=== PATIENT | female | born 1940 | race Caucasian/White ===

== ENCOUNTER 2022-08-31 16:40 | Inpatient (IN) | payer MEDICARE, BC ==
[~2022-08-31] VITALS: Ht 167.6 cm; Wt 76.2 kg
--- NOTE | 2022-08-31 18:09 | NUR ---
Pt taken to CT.
[2022-08-31 18:10] LABS: HEMATOCRIT 41.5 % (31.2-41.9); MEAN CORPUSCULAR HEMOGLOBIN 28.2 uug (24.7-32.8); MEAN CORPUSCULAR VOLUME 83.6 fL (75.5-95.3); PLATELET COUNT (AUTO) 194 K/uL (179-408)
[2022-08-31 18:19] LABS: CARBON DIOXIDE 31 mmol/L (21-32); CHLORIDE 104 mmol/L (98-107); CREATININE 0.9 mg/dL (0.6-1.3); GLUCOSE 104 mg/dL (74-106); POTASSIUM 3.9 mmol/L (3.5-5.1); UREA NITROGEN, BLOOD 11 mg/dL (7-18)
[2022-08-31 18:32] LABS: ALANINE AMINOTRANSFERASE 20 U/L (14-59); ALKALINE PHOSPHATASE 95 U/L (50-136); ASPARTATE AMINOTRANSFERASE 21 U/L (15-37); BILIRUBIN,DIRECT 0.2 mg/dL (0.0-0.2); BILIRUBIN,TOTAL 0.7 mg/dL (0.2-1.0); TOTAL PROTEIN, SERUM 7.4 g/dL (6.4-8.2)
--- NOTE | 2022-08-31 18:34 | NUR ---
Pt a poor historian, unable to obtain list of medications.
--- NOTE | 2022-08-31 18:51 | NUR ---
Dr. Carballo on panel call with Leticia Browning NP.
[2022-08-31] MEDS ORDERED: ONDANSETRON 4 MG/2 ML VIAL IV PRN (20:00)
[2022-08-31] MEDS ORDERED: ACETAMINOPHEN 325 MG TABLET PO PRN (20:00)
[2022-08-31] MEDS ORDERED: MAGNESIUM HYDROXIDE 30 ML LIQUID UDC PO PRN (20:00)
[2022-08-31] MEDS ORDERED: REMEDY ESSENTIAL ZINC PASTE 113 GM TP PRN (20:00)
[2022-08-31] MEDS: IV NS 1000 ML 1,000 ML IV PRN ×2 (20:31→22:17)
[2022-08-31 22:20] VITALS: BP 168/92
[2022-08-31 22:21] VITALS: BP 171/84
[2022-08-31 22:22] VITALS: BP 166/73
--- NOTE | 2022-08-31 22:30 | NUR ---
Admitted to room 315; placed on tele; unable to obtain home meds; room mate has no access; pt's pharmacy on record = not 24 hour; will endorse tonext shift to call in AM -- [facility]
[2022-09-01] VITALS: BP 150/65
[2022-09-01 04:00] VITALS: BP 140/71
[2022-09-01] MEDS ORDERED: PANTOPRAZOLE SODIUM 40 MG TABLET.DR PO SCH (07:00)
[2022-09-01 07:42] LABS: HEMATOCRIT 35.3 % (31.2-41.9); MEAN CORPUSCULAR HEMOGLOBIN 28.3 uug (24.7-32.8); MEAN CORPUSCULAR VOLUME 83.6 fL (75.5-95.3); PLATELET COUNT (AUTO) 149 K/uL (179-408)
[2022-09-01 07:56] LABS: CREATININE 0.7 mg/dL (0.6-1.3); MAGNESIUM 2.1 mg/dL (1.8-2.4); POTASSIUM 4.1 mmol/L (3.5-5.1)
[2022-09-01 08:09] LABS: THYROID STIMULATING HORMONE 2.415 mIU/mL (0.358-3.740)
--- NOTE | 2022-09-01 09:08 | NUR ---
AWAKE ALERT AND ORIENTED PHYSICAL THERAPY HERE AND PATIENT AMBULATED WITH THE FRONT WHEEL WALKER IN THE HALLWAY WITH GOOD ENDURANCE IVF IN PROGRESS ORDERED ORTHO B/P WAS PERFORMED AND DOCUMENTED IN THE LONG FORM.
[2022-09-01 09:10] VITALS: BP 138/72
[2022-09-01 09:13] VITALS: BP_SYST 156; BP_SYST 157; BP_DIAS 64; BP_DIAS 65
--- NOTE | 2022-09-01 09:30 | NUR ---
PATIENT SEEN AND EXAMINED BY DR ROSARIO WITH NO NEW ORDERS AT THIS TIME ORTHOSTATIC BLOOD PRESSURE DONE ORDERED AND DOCUMENTED ON THE LONG FORM
[2022-09-01 11:48] VITALS: BP 134/68
[2022-09-01] MEDS ORDERED: ROSU5TAB PO (13:34)
[2022-09-01] MEDS ORDERED: ATEN50TA PO (13:34)
[2022-09-01] MEDS ORDERED: LOSA100T31 PO (13:34)
[2022-09-01] MEDS ORDERED: AMLO-212 PO (13:34)
--- NOTE | 2022-09-01 15:00 | NUR ---
PATIENT SEEN AND EXAMINED BY ORESTES MELENDEZ WITH NO NEW ORDERS AT THIS TIME.
--- NOTE | 2022-09-01 16:00 | NUR ---
PATIENT IS SOMEWHAT MIXED UP LOOKING FOR THE DAUGHTER TELLING STORIES THAT ARE UNABLE TO FOLLOW DENIES DISCOMFORTS STATED WANTS TO TLAK TO HER DAUGHTER GAVE HER THE PHONE AND SHE IS DIALING HER.
[2022-09-01 16:46] VITALS: BP 163/69
--- NOTE | 2022-09-01 18:01 | NUR ---
BLOOD PRESSURE IS 163/63 ORESTES AMBULETTE DRIVER AWARE AND SHE STATED THAT SHE WILL RECONCILE PATIENTS BLOOD PRESSURE MEDS DID NOT WANT TO GIVE HER PRN MEDS UNLESS SYSTOLIC IS ABOVE 170
--- NOTE | 2022-09-01 18:10 | NUR ---
PATIENT IN HER ROOM EATING DINNER WITH HER DAUGHTER AT THE BEDSIDE JOGGLE PRESS OPERATOR HERE AND 2D ECHO COMPLETED ORDERED WITH 60 PERCENT EF.
--- NOTE | 2022-09-01 18:18 | NUR ---
PER ORESTES PATIENT CAN BE DISCHARGED NEEDS TO FOLLOW UP WITH DR ROSARIO IN ON WEEK CALLED AND NOTIFIED PATIENTS DAUGHTER ANTHONY WILL BE HERE TO EMERGENCY MANAGEMENT SPECIALIST HER MOM AND DID SAY THAT HER MOM HAS HER OWN TRAFFIC WORKER AND WILL PREFER TO GO BACK TO HER OWN TRAFFIC WORKER. Addendum: 09/01/22 at 1900 by SHELLEY ANDINO RN ERROR WRONG PATIENT
--- NOTE | 2022-09-01 18:20 | NUR ---
NOTED THAT PATIENT IS NOT IN HER ROOM ALSO HER DAUGHTER IS NOT IN THE ROOM NOTED THAT HER IVF WAS DISCONNECTED CALLED SECURITY AND THEY SAID THAT THEY DID NOT SEE HER NOTIFIED THE FAST FOOD MANAGER CALLED PATIENTS DAUGHTER MAY BUT UNABLE TO LEAVE A MESSAGE BECAUSE HER VOICE MAIL IS FULL NOTIFIED ORESTES MELENDEZ PATIENT HAD HER IV HEPLOCK AT THE TIME SHE WENT MISSING.
--- NOTE | 2022-09-01 18:20 | NUR ---
NOTED THAT PATIENT IS NOT IN HER ROOM AND HER DAUGHTER IS NOT IN THE ROOM EITHER HER IVF WAS DISCONNECTED BY THE PATIENT OR HER DAUGHTER CALLED THE SECURITY AND THEY STATED THAT THEY DID NOT SEE THE PATIENT CALLED THE DAUGHTER PHONE NUMBER AND SHE DID NOT ANSWER UNABLE TO LEAVE A MESSAGE BECAUSE HER VOICE MAIL IS FULL PATIENT LEFT WITH THE HEPLOCK ON HER LEFT AC.
--- NOTE | 2022-09-01 18:30 | NUR ---
CALLED THE STEAMER BLOCKER NAD NOTIFIED HER THAT THE PATIENT LEFT THE HOSPITAL WITHOUT LETTING THE NURSE KNOW AND WITH THE HEPLOCK INTACT.
--- NOTE | 2022-09-01 18:58 | NUR ---
DISCHARGE INSTRUCTIONS GIVEN TO THE PATIENT AND SHE WAS INSTRUCTED TO FOLLOW UP WITH HER HIDE CLEANER IN ONE WEEK AND SHE EXPRESSED UNDERSTANDING PATIENT STILL HAS A MIDLINE WHICH WILL BE REMOVED WHEN THE PATIENTS FAMILY IS HERE TO PICK HER UP.ENDORSED Addendum: 09/01/22 at 1906 by SHELLEY ANDINO RN ERROR WRONG PATIENT.
--- NOTE | 2022-09-01 19:00 | NUR ---
ERROR WRONG PATIENT
== END 2022-09-01 18:20 | disposition left against medical advice (07) | DRG 57 ==
LOC: ER 16:50 → TELE3 18:30 → MEDSURG3 09-01 11:10
PROVIDERS: ADMIT Registered Nurse; ATTEND Registered Nurse
DX: G90.3 Multi-system degeneration of the autonomic nervous system (principal); E66.9 Obesity, unspecified; Z85.3 Personal history of malignant neoplasm of breast; Z20.822 Contact with and (suspected) exposure to COVID-19; I10 Essential (primary) hypertension; F03.90 Unspecified dementia, unspecified severity, without behavioral disturbance, psychotic disturbance, mood disturbance, and anxiety; Z68.27 Body mass index [BMI] 27.0-27.9, adult; G90.8 Other disorders of autonomic nervous system
CPT/HCPCS: 36415; 70450; 71045; 83735; 84100; 84443; 84484; 85025; 93005; 93307; 93880; A4663; A6209; A6213; G0378; J7040